=== PATIENT | female | born 1965 | race Caucasian/White ===

== ENCOUNTER 2024-01-29 02:43 | Emergency (ER) | payer OTHER, SELFPAY ==
[2024-01-29 02:45] VITALS: BMI 38.4
[2024-01-29 02:48] VITALS: BP 142/68
[2024-01-29 02:52] VITALS: BP 142/68
[2024-01-29 03:01] VITALS: BP 124/74
[2024-01-29 03:03] LABS: % Basophils 0.6 % (0-2); % Eosinophils 0.4 % (0-6); % Immature Granulocytes 0.4 % (0-0.5); % Lymphocytes 20.8 % (20.5-51.1); % Neutrophils 76.8 % (42.2-75.2); Absolute Lymphocytes 1.1 10^3/uL (1.2-3.4); Absolute Monocytes 0.1 10^3/uL (0.1-0.6); Hematocrit 38.4 % (37.0-47.0); Hemoglobin 13.4 g/dL (12.0-16.0); Mean Corp Hgb Conc. 34.9 g/dL (33.0-37.0); Mean Corpuscular Hgb 30.6 pg (27.0-31.0); Mean Corpuscular Volume 87.7 fL (81.0-99.0); Mean Platelet Volume 9.5 fL (7.4-10.4); Nucleated Red Blood Cells % 0 %; Platelet Count 248 10^3/uL (130-400); Red Blood Cell Count 4.38 10^6/uL (4.20-5.40); Red Cell Dist. Width 12.6 % (11.5-14.5); White Blood Cell Count 5.2 10^3/uL (4.8-10.8)
--- NOTE | 2024-01-29 03:12 | ED.GENMED ---
History of Present Illness
General
Chief Complaint: Flank Pain
Time Seen by Provider: 01/29/24 03:12
Travel History
Have you had any contact with someone who has COVID-19?: No
Do you have any symptoms of coronavirus? Fever > 100 degrees, chills, cough, shortness of breath, sore throat, loss of taste or smell, muscle aches, or headache?: No
History of Present Illness
History of Present Illness:
HPI: Patient came in by ambulance due to right flank pain. This been going on for the past week but has been worsening. The pain worsened tonight and she could not get comfortable. She has some associated nausea. She does not have pain in her
chest but notes that she had a spasm/clenching in her jaw. She also thinks there may have been an anxiety component
EXAM:
GENERAL: Well appearing in mild distress
HEENT: Moist oral mucosa
CARDIOVASCULAR: No murmurs, tachycardic heart rate and rhythm, No chest wall tenderness
PULMONARY: No respiratory distress, breath sounds are clear and equal
ABDOMEN: Soft with no peritoneal signs, mild right CVA and right lower quadrant tenderness
NEUROLOGIC: Excellent strength all extremities, no coordination deficits
PSYCHIATRIC: Appropriate mental status, normal insight and judgement
EXTREMITIES: Nontender, no edema, moves all extremities equally, negative straight leg raise on the right
SKIN: No rash, no lesions
ED COURSE:
2:45 AM: I initially evaluated patient
NUMBER AND COMPLEXITY OF PROBLEMS ADDRESSED AT THE ENCOUNTER
� Chronic conditions affecting care: GERD, anxiety, has had hysterectomy
� Acute Exacerbation and/or Progression of Chronic Illness: This is an acute problem
� Differential Diagnosis includes: Ureteral stone/colic, sciatica, nonspecific low back pain
AMOUNT AND/OR COMPLEXITY OF DATA TO BE REVIEWED AND ANALYZED
� I performed an independent evaluation of and my interpretation is:
EKG:
CT: I personally reviewed CT imaging, there is a moderate-sized stone in the mid right ureter, the patient has gallstones however all of her pain is in the lower portion of the abdomen and in the right flank
X-rays:
Laboratory Studies: CBC normal, chemistries unremarkable, urinalysis shows 2+ blood and 2+ leukocyte esterase, renal function is normal, white count is normal
Other:
� Review of other/old records: I reviewed endoscopy notes from 2016 which showed gastric polyps
� Clinical information was obtained by an independent historian: I spoke to son and at bedside
� Prescriptions/Medications Considered but not given:
� Further testing considered but not performed:
RISK OF COMPLICATIONS AND/OR MORBIDITY OR MORTALITY OF PATIENT MANAGEMENT
� Social determinants of health affecting care: Lives at home
� Discussion with other providers: As patient did have greater than 100 white cells per high-power field on UA, I discussed with Dr. Maher at around 5:15 AM. We feel true UTI less likely given lack of nitrates but we agreed
to place patient on antibiotics. She has been cardiac but otherwise meets no SIRS criteria
� Escalation of care including admission/observation vs risk of discharge considered: The patient was initially given Toradol however this did not help much. Will give low-dose of Dilaudid. CT imaging shows mid right ureteral
stone.
Phy Exam
Physical Exam
Physical Exam:
See HPI
Course
Orders/Labs/Results
Orders:
Orders
01/29/24 02:50
EKG [Electrocardiogram (*1)] Urgent
Reason for Study: Tachycardia
EKG- Treatment ONCE
01/29/24 02:55
Complete Blood Count/With Diff Urgent
Comprehensive Metabolic Panel Urgent
01/29/24 03:17
CT Abd/pel Without Iv Or Oral Urgent
Comment:
Reason For Exam: R flank pain vomiting
0.9% Sodium Chloride 1000 ml [Nss] 1,000 ml IV BOLUS
Ketorolac [Toradol] 15 mg IV NOW STA
Ondansetron Injectable [Zofran] 4 mg IV NOW STA
01/29/24 03:37
Urinalysis Reflex To Culture Urgent
Date Specimen was Collected: 01/29/24
Time Specimen was Collected: 02:50
Urine Microscopic Reflex Cult Urgent
Urine Culture Urgent
DELVIN Source: U
Specimen Description:
Date Specimen was Collected: 01/29/24
Time Specimen was Collected: 02:50
01/29/24 04:12
HYDROmorphone [Dilaudid] 0.5 mg IV NOW STA
01/29/24 05:04
Tamsulosin [Flomax] 0.4 mg PO NOW STA
01/29/24 05:11
Ciprofloxacin 400 mg/[id number] [Cipro 400 mg] 200 ml IV NOW
01/29/24 05:15
Sulfamethox./Trimethoprim Ds [Bactrim Ds 800 mg/160 mg] 1 tablet PO NOW STA
Abnormal Lab Results
01/29/24 01/29/24
02:55 03:37
Absolute Lymphs (auto) 1.1 L 10^3/uL
(1.2-3.4)
Neutrophils % 76.8 H %
(42.2-75.2)
Monocytes % 1.0 L %
(1.7-9.3)
Carbon Dioxide 21 L mmol/L
(22-30)
BUN 23 H mg/dl
(7-17)
Glucose 111 H mg/dl
(70-99)
Ur Occult Blood Reflex 2+ A
(Negative)
Leukocyte Esterase Rfl 2+ A
(Negative)
Urine RBC 3-6 A /HPF
(0-2)
Urine WBC (Reflex) >100 A /HPF
(0-5)
Urine Bacteria (Reflex) Many A
(Negative)
01/29/24 02:55
01/29/24 02:55
Vital Signs
Initial and Last Documented VS:
Initial Vital Signs
Temp Pulse Resp Pulse Ox
98.1 F 107 19 97
01/29/24 02:45 01/29/24 02:45 01/29/24 02:45 01/29/24 02:45
Last Documented Vital Signs
Temp Pulse Resp BP Pulse Ox
98.1 F 110 12 120/64 90
01/29/24 02:45 01/29/24 05:00 01/29/24 05:00 01/29/24 05:00 01/29/24 05:00
*Critical Care Note
Total Time (30-74mins, 75-104mins- exclusive of procedures): Not Applicable
ED Attending Note
-
Portions of this chart may have been created with voice recognition software.� Occasional wrong word or��sound alike� substitutions may have occurred due to the inherent limitations of voice recognition software.
Discharge Plan
Departure
Patient Disposition: Home (Routine Discharge)
Date of Disposition: 01/29/24
Time of Disposition: 05:10
Patient with high blood pressure during this ER visit?: Yes
Discharge Problem:
Right ureteral stone
Instructions: Flank Pain (DC), How to Strain Your Urine
Prescriptions:
New
oxycodone-acetaminophen [Percocet] 5-325 mg tablet
1 - 2 tab PO Q8H PRN (Reason: Pain) Qty: 14 0RF
ondansetron HCl 4 mg tablet
4 mg PO Q8H PRN (Reason: nausea and vomiting) Qty: 10 0RF
ketorolac 10 mg tablet
10 mg PO Q6H PRN (Reason: Pain) Qty: 20 0RF
sulfamethoxazole-trimethoprim [Bactrim DS] 800-160 mg tablet
1 tab PO BID 7 Days Qty: 14 0RF
No Action
citalopram 20 MG tablet
20 mg PO DAILY
omeprazole [Prilosec] 20 MG capsule,delayed release(DR/EC)
20 mg PO DAILY
fluticasone propionate 1 SPRAY spray,suspension
1 spray inhalation DAILY
loratadine 10 MG tablet
10 mg PO DAILY
L.acidoph, paracasei,B. lactis 1 EACH capsule
1 ea PO DAILY
oxycodone-acetaminophen 5 MG/325 MG tablet
2 tab PO Q4HPRN PRN (Reason: severe pain) Qty: 0 0RF
oxycodone-acetaminophen 5 MG/325 MG tablet
1 tab PO Q4HPRN PRN (Reason: moderate pain) Qty: 25 0RF
docusate sodium 100 MG capsule
100 mg PO BIDPRN PRN (Reason: constipation) Qty: 30 0RF
simethicone [Gas Relief 80 (simethicone)] 80 MG tablet,chewable
80 mg PO Q6HPRN PRN (Reason: gas distention) Qty: 30 0RF
ibuprofen 600 MG tablet
600 mg PO Q4HPRN PRN (Reason: mild pain) Qty: 30 0RF
prednisone 20 mg tablet
40 mg PO DAILY 4 Days Qty: 8 0RF
naproxen 500 mg tablet
500 mg PO Q12H PRN (Reason: pain) 7 Days Qty: 14 0RF
Referrals:
Rigo Leon DO [Family Provider] -
Alec Maher MD [Active] - Follow up in 2-3 days
Activity Restrictions/Additional Instructions:
Strain your urine. Follow-up with Dr. Maher�call them on Wednesday. Return here if worse. Do not take ibuprofen or any other NSAIDs if you take Toradol which is an NSAID.
Interventions
Interventions:
*Risk Screen - Suicide Last Done: 01/29/24 02:45
*General Assessment Last Done: 01/29/24 02:45
*Neglect/Abuse Screening Last Done: 01/29/24 02:45
ED- Fall Risk Assessment Last Done: 01/29/24 02:45
*ED COVID-19 Vaccine History Last Done: 01/29/24 02:45
NU-[id number]-Zwhczxlvru Assessment Last Done: 01/29/24 02:52
ED-Female Genitourinary Assessment Last Done: 01/29/24 02:52
[2024-01-29 03:19] LABS: ALT (SGPT) 24 U/L (0-35); AST (SGOT) 30 U/L (14-36); Albumin 4.8 g/dl (3.5-5.0); Alkaline Phosphatase 91 U/L (38-126); Blood Urea Nitrogen 23 mg/dl (7-17); Carbon Dioxide 21 mmol/L (22-30); Chloride 106 mmol/L (98-107); Estimated Creatinine Clearance 111 ml/min; Glucose 111 mg/dl (70-99); Potassium 4.1 mmol/L (3.5-5.1); Sodium 137 mmol/L (135-145); Total Bilirubin 1.2 mg/dl (0.2-1.3); Total Protein 7.5 g/dl (6.3-8.2); eGFR > 60.00
[2024-01-29] MEDS: TORADOL 15 MG IV (03:24)
[2024-01-29] MEDS: ZOFRAN 4 MG IV (03:24)
[2024-01-29] MEDS: NSS 1000 IV (03:37)
[2024-01-29 03:45] LABS: Urine Albumin Negative (Neg - Trace); Urine Bilirubin Negative (Negative); Urine Character Slightly Cloudy (Clear); Urine Color Straw; Urine Glucose Negative (Negative); Urine Ketone Negative (Negative); Urine Leukocyte 2+ (Negative); Urine Nitrite Negative (Negative); Urine Occult Blood 2+ (Negative); Urine Urobilinogen Negative (Neg - 1+)
[2024-01-29 04:00] VITALS: BP 124/72
[2024-01-29] MEDS: DILAUDID 0.5 MG IV (04:15)
[2024-01-29 04:34] LABS: Urine Mucus Many; Urine Squamous Cell >30 /LPF (Few); Urine White Cell >100 /HPF (0-5)
[2024-01-29 04:35] LABS: Urine Bacteria Many (Negative)
[2024-01-29 05:00] VITALS: BP 120/64
[2024-01-29] MEDS: BACTRIM DS 800 MG/160 MG 1 TABLET PO (05:21)
[2024-01-29] MEDS: FLOMAX 0.400000000000000022 MG PO (05:21)
== END 2024-01-29 05:40 | disposition home or self-care (01) ==
LOC: EMR 02:43
PROVIDERS: Emergency Medicine; EMERGENCY PHYSICIAN Emergency Medicine; FAMILY PHYSICIAN Family Medicine
DX: N20.1 Calculus of ureter (principal); K21.9 Gastro-esophageal reflux disease without esophagitis; F41.9 Anxiety disorder, unspecified; R03.0 Elevated blood-pressure reading, without diagnosis of hypertension
CPT/HCPCS: 99285; 96374; 96375 ×2; 96361; 74176; 80053; 81003; 81015; 85025; 87077; 87086; 87186; 93005

== ENCOUNTER 2024-02-18 06:14 | Day surgery (SDC) | payer OTHER, SELFPAY ==
[2024-02-18] VITALS (8 sets, daily range): BP systolic 113–138; BP diastolic 54–79; BMI 36.9
[2024-02-18 06:33] LABS: Glucose - Point of Care 131 mg/dl (70-99)
[2024-02-18] MEDS: Pyridium 200 MG PO (08:43)
[2024-02-22 23:36] LABS: Stone Analysis Mass 31 mg
== END 2024-02-18 09:28 | disposition home or self-care (01) ==
LOC: SDS 06:14
PROVIDERS: ATTENDING PHYSICIAN Specialist
DX: N20.1 Calculus of ureter (principal)
CPT/HCPCS: 52320; 74018; 76000; 82365; 82962